=== PATIENT | male | born 1950 | race Caucasian/White ===

== ENCOUNTER 2017-01-21 09:39 | Emergency (ER) | payer MEDICARE, OTHER ==
[~2017-01-21 09:39] MED LIST: ADVAIR 250-501 EAC1 IN; BACTRIM DS TABL1 TAB PO; FISH OIL 1,0001 CAP PO; KEFLEX PO; PRAVASTATIN SOD20 MG PO; VICODIN 5/500 T1 TAB PO
== END 2017-01-21 09:50 | disposition home or self-care (01) ==
LOC: SED 09:39
DX: B02.9 Zoster without complications (principal); E78.5 Hyperlipidemia, unspecified; E03.9 Hypothyroidism, unspecified
CPT/HCPCS: 99282